=== PATIENT | male | born 1995 | race Caucasian/White ===

== ENCOUNTER 2018-07-20 16:43 | Emergency (ER) | payer MEDICAID, OTHER ==
[~2018-07-20] VITALS: Ht 182.9 cm; Wt 85.7 kg
[2018-07-20 18:42] LABS: BASOPHILS # (AUTO) 0.03 x10^3/uL (0-0.1); BASOPHILS % (AUTO) 0 % (0-1); EOSINOPHILS # (AUTO) 0.14 x10^3/uL (0-0.4); EOSINOPHILS % (AUTO) 2 % (1-7); LYMPHOCYTES # (AUTO) 1.67 x10^3/uL (1-3.4); LYMPHOCYTES % (AUTO) 24 % (22-44); MD NO; MEAN CORPUSCULAR HEMOGLOBIN 30.5 pg (27.5-34.5); MEAN CORPUSCULAR HGB CONC 34.4 g/dL (33.2-36.2); MEAN CORPUSCULAR VOLUME 88.5 fL (81-97); MEAN PLATELET VOLUME 8.2 fL (7.4-10.4); MONOCYTES # (AUTO) 0.24 x10^3/uL (0.2-0.8); MONOCYTES % (AUTO) 4 % (2-9); NEUTROPHILS # (AUTO) 4.78 x10^3/uL (1.8-6.8); NEUTROPHILS % (AUTO) 70 % (42-75); PLATELET COUNT 222 x10^3/uL (130-400); RED CELL DISTRIBUTION WIDTH 12.8 % (9.4-14.8)
[2018-07-20 18:50] LABS: ALANINE AMINOTRANSFERASE 20 U/L (12-78); ALBUMIN 4.3 g/dL (3.4-5.0); ANION GAP 5 mmol/L (5-15); CALCIUM 9.3 mg/dL (8.5-10.1); CHLORIDE 110 mmol/L (98-107); CREATININE 0.89 mg/dL (0.7-1.3)
[2018-07-20 18:53] LABS: ALKALINE PHOSPHATASE 45 U/L (45-117); BILIRUBIN,TOTAL 0.8 mg/dL (0.2-1.0); TOTAL PROTEIN 7.5 g/dL (6.4-8.2)
[2018-07-20 19:43] LABS: MICROSCOPIC INDICATED
[2018-07-20 19:45] LABS: CULTURE INDICATED? NO
[2018-07-20 20:26] VITALS: BP 122/75
== END 2018-07-20 20:28 | disposition home or self-care (01) ==
LOC: ED 18:42
DX: R10.32 Left lower quadrant pain (principal); F17.200 Nicotine dependence, unspecified, uncomplicated
CPT/HCPCS: 36415; 74021; 80053; 81001; 83690; 85025; 99285

== ENCOUNTER 2019-03-12 14:10 | Emergency (ER) | payer SELFPAY ==
[~2019-03-12] VITALS: Ht 182.9 cm; Wt 88.0 kg
[2019-03-12] MEDS ORDERED: ONDANSETRON 2MG/ML, 2ML IVPush ONE (14:30)
[2019-03-12] MEDS ORDERED: HYDROmorphone 2 MG/ML, 1ML IVPush PRN (14:30)
[2019-03-12 14:50] LABS: MICROSCOPIC NOT IND
[2019-03-12 14:53] LABS: BASOPHILS # (AUTO) 0.02 x10^3/uL (0-0.1); BASOPHILS % (AUTO) 0 % (0-1); EOSINOPHILS # (AUTO) 0.24 x10^3/uL (0-0.4); EOSINOPHILS % (AUTO) 4 % (1-7); LYMPHOCYTES # (AUTO) 2.23 x10^3/uL (1-3.4); LYMPHOCYTES % (AUTO) 36 % (22-44); MD NO; MEAN CORPUSCULAR HEMOGLOBIN 29.4 pg (27.5-34.5); MEAN CORPUSCULAR HGB CONC 32.9 g/dL (33.2-36.2); MEAN CORPUSCULAR VOLUME 89.2 fL (81-97); MEAN PLATELET VOLUME 7.9 fL (7.4-10.4); MONOCYTES # (AUTO) 0.22 x10^3/uL (0.2-0.8); MONOCYTES % (AUTO) 4 % (2-9); NEUTROPHILS # (AUTO) 3.55 x10^3/uL (1.8-6.8); NEUTROPHILS % (AUTO) 57 % (42-75); PLATELET COUNT 249 x10^3/uL (130-400); RED BLOOD COUNT 5.26 x10^6/uL (4.38-5.82); RED CELL DISTRIBUTION WIDTH 12.9 % (9.4-14.8)
[2019-03-12 15:01] LABS: CULTURE INDICATED? NO
[2019-03-12 15:04] LABS: ALANINE AMINOTRANSFERASE 21 U/L (12-78); ALBUMIN 4.5 g/dL (3.4-5.0); ANION GAP 6 mmol/L (5-15); CALCIUM 9.1 mg/dL (8.5-10.1); CHLORIDE 108 mmol/L (98-107); CREATININE 0.92 mg/dL (0.7-1.3)
[2019-03-12 15:07] LABS: ALKALINE PHOSPHATASE 53 U/L (45-117); BILIRUBIN,TOTAL 0.9 mg/dL (0.2-1.0); TOTAL PROTEIN 7.7 g/dL (6.4-8.2)
--- NOTE | 2019-03-12 15:25 | NUR ---
DIGITAL ARTIST: PT TO ROOM FROM [facility]
--- NOTE | 2019-03-12 15:49 | NUR ---
PT PRESENTS TO ER C/O ABD/CHEST WALL PAIN ON THE LEFT SIDE STARTING APPROX. 2 DAYS AGO AFTER A COUGHING FIT. NO RELIEF IN PAIN, NO MEDICATIONS. MD TO BEDSIDE FOR EXAM. SIDERAILS X [address], PT ATTACHED TO MONITOR, CALL LIGHT AND BELONGINGS WITHIN REACH, MOM AT BEDSIDE.
[2019-03-12] MEDS ORDERED: KETOROLAC 30 MG/1 ML IM ONE (16:30)
[2019-03-12] MEDS ORDERED: KETOROLAC 30 MG/1 ML ONE (16:33)
--- NOTE | 2019-03-12 16:40 | NUR ---
PT MEDICATED PER MD ORDER, UP FOR RECHECK.
[2019-03-12 17:12] VITALS: BP 119/62
--- NOTE | 2019-03-12 17:13 | NUR ---
Patient/Caregiver given discharge instructions and they have confirmed that they understand the instructions. Patient ambulatory with steady gait.
== END 2019-03-12 17:14 | disposition home or self-care (01) ==
LOC: ED 17:05
DX: R07.89 Other chest pain (principal)
CPT/HCPCS: 36415; 71046; 74176; 80053; 81003; 85025; 96372; 99284; J1885